=== PATIENT | female | born 1980 | race American Indian/Alaskan Native ===

== ENCOUNTER → 2019-06-16 | Outpatient (CLI) | payer OTHER ==
[~2019-06-16] MED LIST: ESCI5; LORA2 PO; PHENA200 PO; RXPHEN200 PO; RXSULTRIDS PO; SULTRIDS PO
== END | disposition home or self-care (01) ==
LOC: LAB SHORT 07:36 → PLD 07:36
DX: D22.5 Melanocytic nevi of trunk (principal); D23.39 Other benign neoplasm of skin of other parts of face
CPT/HCPCS: 88305